=== PATIENT | female | born 1945 | race Two or more races ===

== ENCOUNTER 2020-11-13 13:56 | Outpatient (CLI) | payer OTHER | END 2020-11-13 14:03 | disposition home or self-care (01) | LOC: RAD 13:56 | PROVIDERS: ATTEND General Practice | DX: S59.811A Other specified injuries right forearm, initial encounter (principal) ==

== ENCOUNTER 2022-05-29 19:59 | Inpatient (IN) | payer OTHER ==
[~2022-05-29] VITALS: Ht 165.1 cm; Wt 72.6 kg
[2022-05-29] MEDS ORDERED: TOPROL XL100 M1 (21:41)
== END 2022-06-05 19:05 | disposition home or self-care (01) | DRG 389 ==
LOC: ER 19:59 → SEC-K 05-30 09:09 → MEDJ 05-30 09:09 → MEDI 06-01 10:56
PROVIDERS: ADMIT Internal Medicine; ATTEND Internal Medicine
PROC: BW21ZZZ Computerized Tomography (CT Scan) of Abdomen and Pelvis (ICD-10-PCS; 2022-05-29)
PROC: 02HV33Z Insertion of Infusion Device into Superior Vena Cava, Percutaneous Approach (ICD-10-PCS; 2022-05-30)
PROC: 0D9670Z Drainage of Stomach with Drainage Device, Via Natural or Artificial Opening (ICD-10-PCS; principal; 2022-05-31)
PROC: 3E0436Z Introduction of Nutritional Substance into Central Vein, Percutaneous Approach (ICD-10-PCS; 2022-05-31)
PROC: B020Y0Z Computerized Tomography (CT Scan) of Brain using Other Contrast, Unenhanced and Enhanced (ICD-10-PCS; 2022-05-31)
PROC: BW21Y0Z Computerized Tomography (CT Scan) of Abdomen and Pelvis using Other Contrast, Unenhanced and Enhanced (ICD-10-PCS; 2022-06-01)
PROC: 8E0ZXY6 Isolation (ICD-10-PCS; 2022-06-01)
DX: K56.699 Other intestinal obstruction unspecified as to partial versus complete obstruction (principal); K43.3 Parastomal hernia with obstruction, without gangrene; N20.2 Calculus of kidney with calculus of ureter; N39.0 Urinary tract infection, site not specified; B96.1 Klebsiella pneumoniae [K. pneumoniae] as the cause of diseases classified elsewhere; I10 Essential (primary) hypertension; G30.8 Other Alzheimer's disease; F02.80 Dementia in other diseases classified elsewhere, unspecified severity, without behavioral disturbance, psychotic disturbance, mood disturbance, and anxiety; Z74.01 Bed confinement status; Z20.822 Contact with and (suspected) exposure to COVID-19; Z93.3 Colostomy status